=== PATIENT | male | born 1985 | race Caucasian/White ===

== ENCOUNTER 2016-09-01 16:31 | Emergency (ER) | payer OTHER ==
[~2016-09-01] VITALS: Ht 175.3 cm; Wt 72.6 kg
--- NOTE | 2016-09-01 16:43 | NUR ---
PT IS AMBULATORY WITH STEADY GAIT. SPEAKING IN FULL SENTENCES. NAD NOTED. VSS. C/O ABD PAIN S/P DRINKING " JUICE" ON THURSDAY. NO VOMITING NOTED AT THIS TIME. DENIES URINARY SYMPTOMS. WCTM PT AT THIS TIME. WAITING FOR MD TO PERFORM MSE
--- NOTE | 2016-09-01 17:22 | NUR ---
AT BEDSIDE PERFORMING MSE
[2016-09-01] MEDS ORDERED: KETOROLAC TROMETHAMINE 15 MG INJ IV ONE (17:30)
[2016-09-01] MEDS ORDERED: METOCLOPRAMIDE HCL 10 MG/2 ML VIAL IV ONE (17:30)
[2016-09-01] MEDS ORDERED: IV NORMAL SALINE 1000 ML BAG IV ONE (17:30)
[2016-09-01] MEDS ORDERED: METOCLOPRAMIDE HCL 10 MG/2 ML VIAL ONE (17:42)
[2016-09-01] MEDS ORDERED: KETOROLAC TROMETHAMINE 15 MG INJ ONE (17:42)
--- NOTE | 2016-09-01 17:48 | NUR ---
PT IS GOING TO CT
[2016-09-01 17:56] LABS: BASOPHILS % (AUTO) 0.6 % (0.0-2.0); EOSINOPHILS # (AUTO) 0.1 K/uL (0.0-0.7); EOSINOPHILS % (AUTO) 1.1 % (0.0-7.0); HEMATOCRIT 49.9 % (40.0-50.0); HEMOGLOBIN 16.9 g/dL (14.0-18.0); LYMPHOCYTES # (AUTO) 1.9 K/uL (0.8-4.8); LYMPHOCYTES % (AUTO) 25.5 % (20.5-51.5); MEAN CORPUSCULAR HEMOGLOBIN 25.2 uug (27.0-31.0); MEAN CORPUSCULAR HGB CONC 34 g/dL (32.0-37.0); MEAN CORPUSCULAR VOLUME 74.4 fL (82.0-92.0); MONOCYTES # (AUTO) 0.4 K/uL (0.1-1.30); MONOCYTES % (AUTO) 4.8 % (0.0-11.0); NEUTROPHILS # (AUTO) 5.2 K/uL (1.8-8.9); PLATELET COUNT (AUTO) 195 K/uL (150-450); RED CELL DISTRIBUTION WIDTH 13.3 % (11.5-14.5); WHITE BLOOD COUNT (AUTO) 7.6 K/uL (4.0-11.2)
[2016-09-01 18:06] LABS: RED BLOOD CELL COUNT(AUTO) 6.71 MIL/uL (4.70-6.10)
[2016-09-01 18:09] LABS: ALBUMIN 4.6 g/dL (3.4-5.0); BILIRUBIN,DIRECT 0.1 mg/dL (0.0-0.2); BILIRUBIN,TOTAL 0.5 mg/dL (0.2-1.0); CALCIUM 9.5 mg/dL (8.5-10.1); CREATININE 1.2 mg/dL (0.6-1.3); POTASSIUM 4.4 mmol/L (3.5-5.1); TOTAL PROTEIN, SERUM 8.1 g/dL (6.4-8.2)
[2016-09-01 18:11] LABS: TROPONIN I < 0.017 ng/mL (0.00-0.056)
[2016-09-01 18:15] LABS: LACTIC ACID 1.3 mmol/L (0.4-2.0)
--- NOTE | 2016-09-01 18:55 | NUR ---
Patient discharged to home in stable conditon. Written and verbal after care instructions given, Prescription for motrin, cipro, reglan, flagyl given as ordered by MD. Work note also provided by MD. Patient verbalizes understanding of instructions. No further questions or concerns noted prior on leaving the ED.
[2016-09-01 18:57] VITALS: BP 119/69
== END 2016-09-01 18:57 | disposition home or self-care (01) ==
LOC: ER 16:33
DX: R10.9 Unspecified abdominal pain (principal); E86.0 Dehydration; Z88.0 Allergy status to penicillin
CPT/HCPCS: 36415; 74176; 80048; 80076; 83605; 83690; 84484; 85025; 87040 ×2; 96361; 96374; 96375; 99285; A4663; J1885; J2765; J7030; 70030-TC